=== PATIENT | female | born 1995 | race Caucasian/White ===

== ENCOUNTER → 2017-06-14 | Outpatient (CLI) | payer SELFPAY ==
--- NOTE | 2017-06-14 16:46 | RADIOLOGY REPORT (SQ) ---
EXAM DESCRIPTION: U/S OB 14+ TRNABD 1GES W/O DOP; U/S 37972 + EACH ADDIT GEST COMPLETED DATE/TIME: 06/14/2017 4:11 pm; 06/14/2017 4:12 pm REASON FOR STUDY: ENCOUNTER FOR SUPERVISION OF OTHER NORMAL SECOND TRIMESTER (Z34.8; S/D A NATOMY Z34.82 ENCOUNTER FOR SUPRVSN OF NORMAL , SECOND TRI COMPARISON: None. TECHNIQUE: Static and Dynamic grayscale imaging performed of gravid uterus using transabdominal appr oach. Additional selected color Doppler and spectral images recorded. All stored on PACS. LIMITATIONS: None. FINDINGS: Twin . Baby A is closer to the cervix, slightly to the maternal left. Baby B is fundal and maternal right. BABY A EGA: 22 weeks 5 days by multiple measured ESTELA: 10/13/2017 EFW: 523 grams PERCENTILE: 33rd percentile ELIZABETH: Largest pocket 5.9 cm PLACENTA: Anterior GRADE: I PRESENTATION: Cephalic. ANATOMY: HEART RATE: 141 beats per minute. FOUR CHAMBER HEART: Visualized. THREE VESSEL CORD: Yes. CORD INSERTION: Visualized. KIDNEYS AND BLADDER: Visualized. Appear normal. STOMACH: Visualized. Appears normal. SPINE: Normal as visualized. BRAIN AND LATERAL VENTRICLES: Visualized. Appear normal. OTHER: No other significant finding. BABY B EGA: 22 weeks 5 days ESTELA: 10/13/2017 EFW: 527 grams PERCENTILE: 34th percentile ELIZABETH: 4.8 cm largest pocket PLACENTA: Anterior GRADE: I PRESENTATION: Transverse ANATOMY: HEART RATE: 132 beats per minute. FOUR CHAMBER HEART: Visualized. THREE VESSEL CORD: Yes. CORD INSERTION: Visualized. KIDNEYS AND BLADDER: Visualized. Appear normal. STOMACH: Visualized. Appears normal. SPINE: Normal as visualized. BRAIN AND LATERAL VENTRICLES: Appear grossly normal. OTHER: No other significant finding. MATERNAL ADNEXA: Maternal ovaries not visualized. CERVICAL LENGTH: Not visualized OTHER: No other significant finding. IMPRESSION: LIVING INTRAUTERINE TWIN . ESTIMATED GESTATIONAL AGE 22 weeks 5 days NO VISUALIZED ANOMALIES. Trimester of : Second trimester - 13 weeks 1 day to 27 weeks 6 days. TECHNICAL DOCUMENTATION: JOB ID: [id number]- All Rights Reserved
== END ==
LOC: RAD 13:27
PROVIDERS: ATTEND Nurse Practitioner Women's Health
DX: O30.002 Twin pregnancy, unspecified number of placenta and unspecified number of amniotic sacs, second trimester (principal); Z3A.22 22 weeks gestation of pregnancy
CPT/HCPCS: 76805; 76810

== ENCOUNTER 2017-08-27 14:22 | Inpatient (IN) | payer MEDICAID ==
[~2017-08-27 14:22] MED LIST: SUCCINYLCHOLINE CHLORIDE INJ 200 MG/10 ML VIAL ONE
[2017-08-27] MEDS ORDERED: HYDROXYZINE PAMOATE 50 MG CAPSULE ONE (15:50)
[2017-08-27 17:57] LABS: APPEARANCE,URINE CLEAR; BILIRUBIN,URINE NEGATIVE (NEGATIVE); GLUCOSE, URINE NEGATIVE (NEGATIVE); KETONES,URINE NEGATIVE (NEGATIVE); LEUKOCYTE ESTERASE,URINE NEGATIVE (NEGATIVE); NITRITE,URINE NEGATIVE (NEGATIVE); PROTEIN,URINE NEGATIVE (NEGATIVE); URINE SPECIFIC GRAVITY 1.003; UROBILINOGEN,URINE NEGATIVE mg/dL (<2.0)
[2017-08-27] MEDS ORDERED: BETAMET ACET/BETAMET NA INJ 6 MG/1 ML IM SCH ×2 (18:00→18:02)
[2017-08-27] MEDS ORDERED: MAGNESIUM SULFATE 4 GM/100 ML RTUPB IV ONE ×2 (18:04→18:10)
[2017-08-27] MEDS ORDERED: MAGNESIUM SULFATE 20 GM/500 ML RTUINJ IV PRN (18:04)
[2017-08-27] MEDS ORDERED: BETAMET ACET/BETAMET NA INJ 6 MG/1 ML ONE (18:10)
--- NOTE | 2017-08-27 18:11 | RADIOLOGY REPORT (SQ) ---
EXAM DESCRIPTION: U/S OB LIMITED COMPLETED DATE/TIME: 08/27/2017 5:38 pm REASON FOR STUDY: Twins, ctx, 33wk IUP, Cervical length COMPARISON: 06/14/2017. TECHNIQUE: Limited transabdominal grayscale ultrasound for evaluation of specific requested obstetri madie parameters. LIMITATIONS: None. FINDINGS: CERVICAL LENGTH: 2.0 cm. Closed. Twin A: Largest fluid pocket 6 cm, with vernix. Anterior placenta ; heterogeneous region measuring close to 11 cm but without clear evidence of abrup tion. This area looks solid and partially circumscribed with mild internal hypoechoic regions. This appears to be part of the main placenta rather than a separate lobe Vertex presentation. Heart rate 131 beats per minute. Twin B: Largest fluid pocket 3.8 cm, with vernix. Anterior placenta. Transverse presentation. Heart rate 139 beats per minute. IMPRESSION: 1. Living living twin gestations, detailed parameters as above. Cervix measures just at 2 cm and looks closed. 2. Twin a placenta is heterogeneous in appearance. Roughly circumscribed r egion looks largely solid with internal probable placental lakes. This does not look like an accesso ry lobe or typical area of abruption or hematoma. Not seen on previous study. Close attention on fo llow-up studies is recommended. Trimester of : Third trimester - 28 weeks to delivery. TECHNICAL DOCUMENTATION: JOB ID: [id number] All Rights Reserved
[2017-08-27 18:13] LABS: URINE BARBITURATES SCREEN NEGATIVE; URINE METHADONE SCREEN NEGATIVE; URINE OPIATES LOW NEGATIVE; URINE PHENCYCLIDINE SCREEN NEGATIVE
[2017-08-27] MEDS ORDERED: CEFAZOLIN 2 GM/D5W RTU 2 GM/50 ML RTUPB IV ONE (19:03)
[2017-08-27] MEDS ORDERED: CITRIC ACID/SODIUM CITRATE ORAL SOLN 15 ML UDCUP ONE (19:03)
[2017-08-27] MEDS ORDERED: OXYTOCIN 10 UNIT/ML VIAL ONE ×2 (19:13→19:20)
[2017-08-27] MEDS ORDERED: EPHEDRINE SULFATE INJ 50 MG/1 ML AMPULE ONE (19:20)
[2017-08-27] MEDS ORDERED: FENTANYL CITRATE INJ/PF 100 MCG/2 ML AMPUL ONE ×2 (19:21→22:08)
[2017-08-27 19:48] LABS: ABSOLUTE LYMPHOCYTES (AUTO) 2.5 10^3/uL (0.5-4.7); ABSOLUTE MONOCYTES (AUTO) 1.1 10^3/uL (0.1-1.4); ABSOLUTE NEUT (AUTO) 9.9 10^3/uL (1.7-8.2); BASOPHILS % (AUTO) 0.2 % (0-2); EOSINOPHILS % (AUTO) 0.3 % (0-6); HEMATOCRIT 23.2 % (36.0-47.0); HGB HCT DIFFERENCE -0.7; LYMPHOCYTES % (AUTO) 18.5 % (13-45); MEAN CORPUSCULAR HEMOGLOBIN 23.4 pg (27.0-33.4); MEAN CORPUSCULAR HGB CONC 32.3 g/dL (32.0-36.0); MEAN CORPUSCULAR VOLUME 72 fl (80-97); MONOCYTES % (AUTO) 7.8 % (3-13); RED BLOOD COUNT 3.21 10^6/uL (3.72-5.28); RED CELL DISTRIBUTION WIDTH 15.8 % (11.5-14.0); SEGMENTED NEUTROPHILS % (AUTO) 73.2 % (42-78); WHITE BLOOD COUNT 13.6 10^3/uL (4.0-10.5)
[2017-08-27] MEDS ORDERED: ONDANSETRON HCL INJ/PF 4 MG/2 ML SDV IV PRN (19:49)
[2017-08-27] MEDS ORDERED: DIPHENHYDRAMINE HCL 50 MG/ML VIAL IV PRN (19:49)
[2017-08-27] MEDS ORDERED: MEPERIDINE HCL/PF INJ 25 MG/1 ML DISP.SYRIN IV PRN (19:49)
[2017-08-27] MEDS ORDERED: PROMETHAZINE HCL INJ 25 MG/1 ML VIAL IV PRN ×2 (19:49→20:27)
[2017-08-27] MEDS ORDERED: MORPHINE SULFATE 10 MG/ML INJ IV PRN ×2 (19:49→20:27)
[2017-08-27] MEDS ORDERED: FENTANYL CITRATE INJ/PF 100 MCG/2 ML AMPUL IV PRN ×3 (19:49)
[2017-08-27 19:51] LABS: HEMOGLOBIN 7.5 g/dL (12.0-15.5)
[2017-08-27] MEDS ORDERED: MORPHINE SULFATE 10 MG/ML INJ ONE (19:58)
[2017-08-27] MEDS ORDERED: ACETAMINOPHEN 100 ML IV ONE (20:04)
[2017-08-27] MEDS ORDERED: KETOROLAC TROMETHAMINE INJ/PF 30 MG/1 ML SDV ONE (20:05)
[2017-08-27] MEDS ORDERED: OXYCODONE-ACETAMINOPHEN 5-325 MG TABLET PO PRN (20:27)
[2017-08-27] MEDS ORDERED: DIPH/PERTUSS(ACELL)/TETANUS VAC/PF 0.5 ML SYR (>=10YO) IM PRN (20:27)
[2017-08-27] MEDS ORDERED: ACETAMINOPHEN 100 ML IV PRN (20:27)
[2017-08-27] MEDS ORDERED: OXYTOCIN/NORMAL SALINE 20 UNIT/1,000 ML RTUINJ IV PRN (20:27)
[2017-08-27] MEDS ORDERED: ACETAMINOPHEN 325 MG TABLET PO PRN (20:27)
[2017-08-27] MEDS ORDERED: MEASLES,MUMPS&RUBELLA VACC/PF 0.5 ML VIAL SUBCUT PRN (20:27)
[2017-08-27] MEDS ORDERED: SIMETHICONE 80 MG TAB.CHEW PO PRN (20:27)
[2017-08-27] MEDS ORDERED: RINGERS SOLUTION,LACTATED 1,000 ML IV PRN (20:27)
[2017-08-27] MEDS ORDERED: PROPOFOL INJ 200 MG/20 ML VIAL IV ONE (20:42)
[2017-08-27] MEDS ORDERED: AMPICILLIN SOD/SULBACTAM 3 GM VIAL ONE (22:08)
[2017-08-27] MEDS ORDERED: AMPICILLIN SOD/SULBACTAM 3 GM VIAL IV SCH (22:15)
[2017-08-27] MEDS ORDERED: AMPICILLIN SOD/SULBACTAM 3 GM VIAL IV PRN (22:56)
[2017-08-27] MEDS: AMPICILLIN SODIUM/SULBACTAM NA 3 GM in NORMAL SALINE 100 ML IV SCH (23:00)
--- NOTE | 2017-08-28 00:13 | Admission Physical ---
Datetime Report Generated by CPN: 08/28/2017 00:13 CURRENT ADMISSION Chief Complaint: Uterine Contractions; Vaginal Bleeding Indication for Induction: Not Applicable Indication for Induction: , Intrauterine ; Observation/Evaluation; Obstetrical Complication Admit Impression- Other: di/di twin gestation. CL 2.0 cm. irregular contractions Admit Plan: Observation/Evaluation Admit Plan- Other: [facility] ACS protocol and Magnesium Sulfate for Neuroprotection and [place] ALLERGIES Medication Allergies: No Medication Allergies: No Known Allergies (08/27/2017) Medication Allergies: nkda Latex: No Latex Allergies Food Allergies: none Environmental Allergies: none OBSTETRICAL HISTORY EDC: 10/10/2017 00:00 : 3 Para: 1 Term: 1 : 0 SAB: 1 IAB: 0 Ectopic: 0 Livin Cesareans: 0 VBACs: 0 Multiple Births: 0 Gestational Diabetes: No Rh Sensitization: No Incompetent Cervix: No NEMO: No Infertility: No ART Treatment: No Uterine Anomaly: No IUGR: No Hx Previous C/S: No Macrosomia: No Hx Loss/Stillborn: No PIH: No Hx : No Placenta Previa/Abruption: No Depression/PP Depression: No PTL/PROM: No Post Hemorrhage: No Current Procedures: Ultrasound Obstetrical History Comments: [id number], true knot 6# G2- SAB G3- current twins SEE RECORDS Alcohol: No Marijuana : No Cocaine: No Other Illicit Drugs: No Cigarettes: Never Smoker. [id number] MEDICAL HISTORY Diabetes: No Blood Transfusion: No Pulmonary Disease (Asthma, TB): No Breast Disease: No Hypertension: No Him Clerk Surgery: No Heart Disease: No Hosp/Surgery: Yes Autoimmune Disorder: No Anesthetic Complications: No Kidney Disease: No Abnormal Pap Smear: No Neuro/Epilepsy: No Psychiatric Disorders: No Other Medical Diseases: No Hepatitis/Liver Disease: No Significant Family History: No Varicosities/Phlebitis: No Trauma/Violence : No Thyroid Dysfunction: No Medical History Comments: childbirth INFECTIOUS HISTORY Gonorrhea: Yes Genital Herpes: No Chlamydia: No Tuberculosis: No Syphilis: No Hepatitis: No HIV/AIDS Exposure: No Rash or Viral Illness: No HPV: No Infectious History Comments: gonorrhea PHYSICAL EXAM General: Normal HEENT: Normal Neurologic: Normal Thyroid: Normal Heart: Normal Lungs: Normal Breast: Normal Back: Normal Abdomen: Normal Genitourinary Exam: Normal Extremities: Normal DTRs: Normal Pelvic Type: Adequate Vital Signs: Reviewed; Within Normal Limits VAGINAL EXAM Dilatation: 0 Effacement: 25 Station: -2 MEMBRANES Pooling: Negative Membranes: Intact FETUS A EGA: 33.5 FHR- Baseline: 140 Variability: Moderate 6-25bpm Accelerations: 15X15 Decelerations: None FHR Category: Category I Estimated Weight (gm): 2000 Presentation: Vertex Admit Comment: if labor progresses will initiate GBS prophylaxis FETUS B Monitoring: External US Monitoring: External US Variability: Moderate 6-25bpm Accelerations: 15X15 Decelerations: None FHR Category: Category I Estimated Weight (gm): 2000 Presentation: Transverse PLANS FOR LABOR AND DELIVERY Labor and Delivery: None Pain Management: Epidural Feeding Preference: Breast Benefit of Breast Feed Discussed: Yes Circumcision: N/A INFORMED CONSENT Signature: with User ID: [email or web address]
[2017-08-28] MEDS ORDERED: INFLUENZA ADLT QUAD (36MOS+) 2017-18 VAC 0.5 ML SYR IM PRN (00:29)
[2017-08-28] MEDS: IBUPROFEN 800 MG TABLET PO SCH ×2 (01:06→06:04)
[2017-08-28] MEDS: KETOROLAC TROMETHAMINE INJ/PF 30 MG/1 ML SDV IV SCH ×3 (01:06→13:10)
[2017-08-28] MEDS: OXYCODONE-ACETAMINOPHEN 5-325 MG TABLET PO PRN ×3 (01:11→19:08)
--- NOTE | 2017-08-28 03:17 | Delivery Summary ---
Del Sum A-C Datetime Report Generated by CPN: 08/28/2017 03:17 DELIVERY PERSONNEL DELIVERY PERSONNEL: [id number] Delivery Doctor:: Priti Batista MD Anesthesiologist:: Nicholas Looney MD WIND ENERGY ENGINEER:: Emmett Rose CRNA Labor and Delivery Nurse:: Raisa Moses RNfur mixer Nurse:: Elissa Waldron RN Project Manager Entertainment And Media:: May Carroll RN Nursery Nurse:: Mel Caballero RN Nursery Nurse:: Toya Kidd RN Tree Expert/AUDITING CODER: Janny Chen, PLATFORM MATERIAL HANDLING SUPERVISOR Tree Expert/AUDITING CODER: Magdalena Adams, ST MATERNAL INFORMATION Delivery Anesthesia: General Medications After Delivery: Pitocin Drip 20 Units/1000ml NSS; Other-Please Comment Meds After Delivery Comment: 2nd bag of pitocin administered by anesthesia in OR Maternal Complications: Abruptio Placenta LABOR SUMMARY EDC: 10/10/2017 00:00 No. Babies in Womb: 2 Attempted: No Labor Anesthesia: IV Sedation LABOR INFORMATION Reason for Induction: Not Applicable Oxytocin: N/A Group B Beta Strep: Unknown MEMBRANES Membranes Rupture Method: Artificial Rupture of Membranes: 08/27/2017 19:09 Length of Rupture (hr): 0.00 Amniotic Fluid Color: Clear Amniotic Fluid Amount: Small STAGES OF LABOR Stage 3 hr: 0 Stage 3 min: 0 VAGINAL DELIVERY Episiotomy: None Laceration #1: None Laceration Extension #1: N/A Laceration Repair: Not Applicable Sponge Count Correct: N/A Sharps Count Correct: N/A CSECTION DELIVERY Primary Indication: Abruptio Placenta Secondary Indication: Nonreassuring Status CSection Urgency: Emergency CSection Incidence: Primary Labor: No Labor Elective: Nonelective CSection Incision: Lower Uterine Transverse BABY A INFORMATION Delivery Date/Time: 08/27/2017 19:09 Method of Delivery: Born in Route : No : N/A Forceps: N/A Vacuum Extraction: N/A Shoulder Dystocia : No PRESENTATION/POSITION BABY A Presentation: Cephalic Cephalic Presentation: Vertex Breech Presentation: N/A PLACENTA INFORMATION BABY A Placenta Delivery Time : 08/27/2017 19:09 Placenta Method of Delivery: Manual Removal Placenta Status: Delivered SCORES BABY A Heart Rate 1 min: Slow, Below 100 bpm Resp Effort 1 min: Absent Reflex Irritability 1 min: No Response Muscle Tone 1 min: Flaccid Color 1 min: Blue/Pale Resuscitation Effort 1 min: Tactile Stimulation; Oxygen; PPV/NCPAP; Chest Compression SCORE 1 MIN: 1 Heart Rate 5 min: >100 bpm Resp Effort 5 min: [place] Reflex Irritability 5 min: Grimace Muscle Tone 5 min: Some Flexion of Extremities Color 5 min: Body [place], Extremities Blue Resuscitation Effort 5 min: Tactile Stimulation; Oxygen SCORE 5 MIN: 7 Muscle Tone 10 min: Flaccid INFORMATION BABY A Gestational Age at Delivery: 33.5 Gestational Status: - <34 Weeks Outcome : Liveborn Infant Condition : Stable Sex: Female IDENTIFICATION BABY A Infant Verification Date/Time: 08/27/2017 19:26 ID Band Number: [id number] Mother's Name Verified: Yes Infant RN Verifying Infant: Farhat Byers RN Additional Verifying Personnel: [employer] RN WEIGHT/LENGTH BABY A Infant Birthweight (gm): 1572 Weight (lb): 3 Infant Weight (oz): 7 Infant Length (in): 16.00 Length (cm): 40.64 CORD INFORMATION BABY A No. Cord Vessels: 3 Nuchal Cord : N/A Cord Blood Taken: No-No blood present in cord for collection ASSESSMENT BABY A Infant Complications: Other Infant Complications- Other: Placental abruption Physical Findings at Delivery: Within Normal Limits Physical Findings- Other: See full nursery assessment Skin to Skin: No Contract Programmer/ALS Called : Yes Infant Care By: Vandana VeraAda Transferred To: NICU BABY B INFORMATION Delivery Date/Time: 08/27/2017 19:10 Method of Delivery : Born in Route : No : N/A Forceps : N/A Vacuum Extraction: N/A Shoulder Dystocia : No SHOULDER DYSTOCIA BABY B Infant Delivery Date/Time: 08/27/2017 19:10 PRESENTATION/POSITION BABY B Presentation : Breech Cephalic Position : N/A ROM/PLACENTA INFO BABY B Rupture of Membranes: 08/27/2017 19:10 Length of Rupture (hr): 0.00 Placenta Delivery Time : 08/27/2017 19:10 Placenta Method of Delivery: Manual Removal Placental Status : Delivered SCORES BABY B Heart Rate 1 min: >100 bpm Resp Effort 1 min: Absent Reflex Irritability 1 min: No Response Muscle Tone 1 min: Flaccid Color 1 min: Blue/Pale Resuscitation Effort 1 min: Tactile Stimulation; Oxygen; PPV/NCPAP SCORE 1 MIN: 2 Heart Rate 5 min: >100 bpm Resp Effort 5 min: Slow, Irregular Reflex Irritability 5 min: Cough or Sneeze or Pulls Away Muscle Tone 5 min: Some Flexion of Extremities Color 5 min: Completely [place] Resuscitation Effort 5 min: Oxygen SCORE 5 MIN: 8 INFORMATION BABY B Gestational Age at Delivery: 33.5 Gestational Status : - <34 Weeks Infant Outcome : Liveborn Condition : Stable Infant Sex : Female IDENTIFICATION BABY B Infant Verification Date/Time: 08/27/2017 19:27 ID Band Number : [id number] Mother's Name Verified: Yes RN Verifying : Farhat Byers SAMMY Additional Verifying Personnel: Deshaun Moses RN WEIGHT/LENGTH BABY B Birthweight (gm): 1720 Infant Weight (lb) : 3 Infant Weight (oz): 13 Length (in): 16.50 Infant Length (cm): 41.91 CORD INFORMATION BABY B No. Cord Vessels : 3 Nuchal Cord : N/A Cord Blood Taken : Yes-For Storage (Mom's Blood Type +) ASSESSMENT BABY B Complications : Other Infant Complications- Other: Baby A with placental abruption Physical Findings at Delivery: Within Normal Limits Physical Findings- Other : See full nursery assessment Skin to Skin: No Contract Programmer/ALS Called : Yes Infant Care By : Eugene Kidd Transfer To: NICU
[2017-08-28] MEDS: AMPICILLIN SODIUM/SULBACTAM NA 3 GM in NORMAL SALINE 100 ML IV SCH ×2 (06:25→16:50)
[2017-08-28 08:24] LABS: HEMATOCRIT 18.5 % (36.0-47.0); HGB HCT DIFFERENCE 0.1; MEAN CORPUSCULAR HGB CONC 33.2 g/dL (32.0-36.0); MEAN CORPUSCULAR VOLUME 72 fl (80-97); RED BLOOD COUNT 2.57 10^6/uL (3.72-5.28); RED CELL DISTRIBUTION WIDTH 16.1 % (11.5-14.0); WHITE BLOOD COUNT 17.8 10^3/uL (4.0-10.5)
[2017-08-28 08:28] LABS: HEMOGLOBIN 6.2 g/dL (12.0-15.5)
--- NOTE | 2017-08-28 08:28 | OPERATIVE REPORT E ---
Operative Report NAME: SHIKHA DORADO : 1995 AGE: 21Y DATE OF SURGERY: 08/27/2017 ROOM: 226 PREOPERATIVE DIAGNOSES: 1. IUP at 33 weeks and 5 days. 2. Di/di twins. 3. Placental abruption. POSTOPERATIVE DIAGNOSES: 1. IUP at 33 weeks and 5 days. 2. Di/di twins. 3. Placental abruption. SURGEON: ANAYA ZUNIGA M.D. ANESTHESIA: Dr. Briones with general endotracheal. FINDINGS: Baby A in cephalic presentation, female. Baby B in transverse presentation, female. Apgars and weights are not available at the time of this dictation. Normal uterus, tubes, and ovaries. Signs of abruption for baby A with large clots and bloody amniotic fluid. COMPLICATIONS: None. ESTIMATED BLOOD LOSS: 1000 mL. INDICATIONS: This is a patient who had been placed on observation status secondary to some vaginal bleeding and concerns for labor secondary to regular contractions as well as some mild bleeding. On arrival, continuous monitoring of the infants showed baby A was starting to decel and did go into the 60s and 70s and sonogram revealed consistent with abruption. Therefore, decision was made for emergent delivery. PROCEDURE IN DETAIL: The patient was taken to the operating room and prepared and draped in a normal sterile fashion in the supine position with a leftward tilt. Transverse skin incision was made with a scalpel and carried through to the underlying layer of fascia with the same scalpel. The fascia was dissected from the rectus muscle sharply and the rectus muscle was divided and peritoneal cavity was entered bluntly. The bladder blade was inserted. The hysterotomy was nicked with a scalpel and extended laterally with surgeon finger fracture. Infant A was then delivered atraumatically and cord was clamped and cut and the was handed off to awaiting pediatricians immediately. The placenta for baby A was removed with the above findings noted consistent with placental abruption. The amniotomy was performed on baby B and this was delivered breeched, grasping both feet and delivering those first and then delivering the arms in which the level of the scapula was noted. The 's head was then delivered atraumatically, and again, the 's cord was clamped and cut and was handed off to awaiting pediatricians. Cord blood was collected on the placenta. The infant's placenta was then removed manually as well as the uterus was then exteriorized and cleared of clots and debris. The hysterotomy was closed with 0 Monocryl in a running, locked fashion. A second layer of the same suture was used to imbricate to ensure hemostasis. The uterus was returned to the abdomen and the peritoneal cavity was cleared of clots and debris. The rectus muscle and peritoneum were reapproximated with a mattress stitch of 2-0 Chromic. The fascia was closed with 0 Vicryl. The skin was closed with michael. Patient tolerated procedure well. Sponge, lap, and needle counts were correct x2, and the patient was taken to recovery in stable condition. DICTATING PHYSICIAN: ANAYA ZUNIGA M.D. [id number] PHY#: [id number] ID: [id number] JOB#: [id number] ACCT: [id number] cc:ANAYA ZUNIGA M.D. >
[2017-08-28] MEDS: DOCUSATE SODIUM 100 MG CAPSULE PO SCH ×2 (09:25→17:44)
[2017-08-28] MEDS: PRENATAL VITAMIN W DHA CAPSULE PO SCH (09:25)
--- NOTE | 2017-08-28 10:12 | PDOC PROGRESS REPORT ---
Subjective-OB Subjective: Post Delivery Day: 21 year old. Denies any needs at this time Pt doing ok, OOB to BR, voided, feeling faint when returning to bed, improved quickly, eating well, no nausea, scant bleeding, breast feeding Physical Exam (OB) Vital Signs: Temp Pulse Resp BP Pulse Ox 98.1 F 86 18 107/66 100 08/28/17 07:22 08/28/17 07:22 08/28/17 07:22 08/28/17 07:22 08/28/17 07:22 Intake & Output 08/27/17 08/28/17 08/29/17 06:59 06:59 06:59 Intake Total 1000 Output Total 450 Balance 550 Weight 69.85 kg - PIH/Pre-Eclampsia DTR's: 2 + Clonus: Negative Headache: Absent Epigastric Pain: No Visual Changes: No - Dressing Removed: No Incision: Dressing, Well Approximated Closure Type: Surgical Glue - Lochia Lochia Amount: Small 10-25 ml Lochia Color: Rubra/Red - Abdomen Description: Soft Hernia Present: No Fundal Description: Firm, Midline Fundal Height: u/u - u/2 Objective-Diagnostic Laboratory: 08/28/17 07:30 08/27/17 08/27/17 08/27/17 17:40 19:20 19:20 WBC 13.6 H RBC 3.21 L Hgb 7.5 L Hct 23.2 L MCV 72 L MCH 23.4 L MCHC 32.3 RDW 15.8 H Plt Count 246 Seg Neutrophils % 73.2 Lymphocytes % 18.5 Monocytes % 7.8 Eosinophils % 0.3 Basophils % 0.2 Absolute Neutrophils 9.9 H Absolute Lymphocytes 2.5 Absolute Monocytes 1.1 Absolute Eosinophils 0.0 Absolute Basophils 0.0 Urine Color STRAW Urine Appearance CLEAR Urine pH 7.0 Ur Specific [place] 1.003 Urine Protein NEGATIVE Urine Glucose (UA) NEGATIVE Urine Ketones NEGATIVE Urine Blood MODERATE H Urine Nitrite NEGATIVE Ur Leukocyte Esterase NEGATIVE Urine WBC (Auto) 0 Blood Type O POSITIVE Antibody Screen NEGATIVE 08/28/17 07:30 WBC 17.8 H RBC 2.57 L Hgb 6.2 L Hct 18.5 L MCV 72 L MCH 24.0 L MCHC 33.2 RDW 16.1 H Plt Count 212 Seg Neutrophils % Lymphocytes % Monocytes % Eosinophils % Basophils % Absolute Neutrophils Absolute Lymphocytes Absolute Monocytes Absolute Eosinophils Absolute Basophils Urine Color Urine Appearance Urine pH Ur Specific [place] Urine Protein Urine Glucose (UA) Urine Ketones Urine Blood Urine Nitrite Ur Leukocyte Esterase Urine WBC (Auto) Blood Type Antibody Screen Assessment and Plan(PN) - Assessment and Plan (1) Anemia Qualifiers: Anemia type: iron deficiency Is this a current diagnosis for this admission?: Yes (2) Twin delivery by Is this a current diagnosis for this admission?: Yes - Time Spent with Patient Time with patient: Less than 15 minutes Medications reviewed and adjusted accordingly: Yes - Disposition Anticipated Discharge: Home Within: within 48 hours - will monitor symptoms of blood loss, may need to transfuse if pt has symptoms
--- NOTE | 2017-08-28 12:52 | OPERATIVE REPORT E ---
Operative Report NAME: SHIKHA DORADO : 1995 AGE: 21Y DATE OF SURGERY: 08/27/2017 ROOM: 226 PREOPERATIVE DIAGNOSES: 1. Intrauterine at 33 weeks 5 days. 2. Di/di twins. 3. Abruption. POSTOPERATIVE DIAGNOSES: 1. Intrauterine at 33 weeks 5 days. 2. Di/di twins. 3. Abruption. OPERATION: SURGEON: ANAYA ZUNIGA M.D. ANESTHESIA: Dr. Looney with general endotracheal. FINDINGS: Female infant, cephalic presentation. Apgars on both of them and weights on both of them. Dictation ends here DICTATING PHYSICIAN: ANAYA ZUNIGA M.D. [id number] PHY#: [id number] ID: [id number] JOB#: [id number] ACCT: [id number] cc:ANAYA ZUNIGA M.D. >
[2017-08-28] MEDS ORDERED: DIPH/PERTUSS(ACELL)/TETANUS VAC/PF 0.5 ML SYR (>=10YO) IM PRN (14:00)
[2017-08-28] MEDS ORDERED: MEASLES,MUMPS&RUBELLA VACC/PF 0.5 ML VIAL SUBCUT PRN (14:00)
[2017-08-28] MEDS ORDERED: AMPICILLIN SODIUM/SULBACTAM NA 3 GM in NORMAL SALINE 100 ML IV ONE (17:00)
[2017-08-28] MEDS ORDERED: ACETAMINOPHEN 325 MG TABLET PO PRN (19:16)
[2017-08-28] MEDS ORDERED: DIPHENHYDRAMINE HCL 25 MG CAPSULE PO PRN (19:16)
[2017-08-29] MEDS: IBUPROFEN 800 MG TABLET PO SCH ×3 (02:45→14:36)
[2017-08-29] MEDS: OXYCODONE-ACETAMINOPHEN 5-325 MG TABLET PO PRN (02:47)
[2017-08-29 06:23] LABS: HGB HCT DIFFERENCE 0.7; MEAN CORPUSCULAR HGB CONC 34.3 g/dL (32.0-36.0); MEAN CORPUSCULAR VOLUME 73 fl (80-97); RED BLOOD COUNT 3.14 10^6/uL (3.72-5.28); RED CELL DISTRIBUTION WIDTH 15.9 % (11.5-14.0); WHITE BLOOD COUNT 18.4 10^3/uL (4.0-10.5)
[2017-08-29 06:25] LABS: HEMOGLOBIN 7.9 g/dL (12.0-15.5)
[2017-08-29] MEDS: PRENATAL VITAMIN W DHA CAPSULE PO SCH (09:33)
[2017-08-29] MEDS: DOCUSATE SODIUM 100 MG CAPSULE PO SCH (09:34)
--- NOTE | 2017-08-29 12:32 | PDOC DISCHARGE SUMMARY ---
Final Diagnosis Discharge Date: 08/29/17 - Final Diagnosis (1) Placenta abruption, delivered, current hospitalization Is this a current diagnosis for this admission?: Yes (2) Anemia Is this a current diagnosis for this admission?: Yes (3) Twin delivery by Is this a current diagnosis for this admission?: Yes Discharge Data - Discharge Medication Home Medications: Pnv 102/Iron/Folate 1/Dss/Dha [Vitafol Fe+ Docusate Combo Pck] 1 tab PO DAILY Reason(s) for Admission: Ceasarean Section-Primary, Vaginal Bleading Procedures: Ultrasound Intrapartum Procedure(s): : Low Cervical, Transverse - Diagnosis Test Laboratory: Temp Pulse Resp BP Pulse Ox 98.2 F 81 16 111/71 98 08/29/17 08:43 08/29/17 08:43 08/29/17 08:43 08/29/17 08:43 08/29/17 08:43 08/27/17 08/27/17 08/28/17 17:40 19:20 07:30 RBC 3.21 L 2.57 L Hgb 7.5 L 6.2 L Hct 23.2 L 18.5 L Urine Opiates Screen NEGATIVE 08/29/17 05:43 RBC 3.14 L Hgb 7.9 L Hct 23.0 L Urine Opiates Screen - Discharge information/Instructions Discharge Activity: Activity As Tolerated, Balance Activity w/Rest, No Driving, No Lifting Over 10 Pounds, No Lifting/Push/Pulling, Pelvic Rest, Slowly Increase Activity, No tub bath Discharge Diet: As Tolerated, Regular Disposition: HOME, SELF-CARE Follow up with: [facility]: 5, Days - incision check
[2017-08-29 12:51] VITALS: BP 118/59
== END 2017-08-29 15:40 | disposition home or self-care (01) | DRG 765 ==
LOC: LC 14:22 → OBSVTOIN 18:11 → LR 18:11 → 2S 23:40
PROVIDERS: ADMIT Obstetrics & Gynecology; ATTEND Obstetrics & Gynecology
PROC: 10D00Z1 Extraction of Products of Conception, Low, Open Approach (ICD-10-PCS; principal; 2017-08-27)
PROC: 30233N1 Transfusion of Nonautologous Red Blood Cells into Peripheral Vein, Percutaneous Approach (ICD-10-PCS; 2017-08-28)
DX: O60.14X1 Preterm labor third trimester with preterm delivery third trimester, fetus 1 (principal); O45.93 Premature separation of placenta, unspecified, third trimester; O32.1XX2 Maternal care for breech presentation, fetus 2; O99.02 Anemia complicating childbirth; D50.9 Iron deficiency anemia, unspecified; O30.043 Twin pregnancy, dichorionic/diamniotic, third trimester; O76 Abnormality in fetal heart rate and rhythm complicating labor and delivery; Z3A.33 33 weeks gestation of pregnancy; Z37.2 Twins, both liveborn
CPT/HCPCS: 1961; 36415; 36430; 76815; 80307; 81001; 85025; 85027; 86592; 86850; 86900; 86901; 86920; 87210; 88307; 90686; 90715; 94799; 99465; J0131; J0295; J0330; J0690; J0702; J1885; J2270; J2590; J2704; J3010; J3475; J3490; P9016